=== PATIENT | female | born 1950 | race Caucasian/White ===

== ENCOUNTER → 2020-05-03 | Outpatient (CLI) | payer MEDICARE, OTHER ==
[~2020-05-03] MED LIST: ASPIRIN EC81 MG PO; LIPITOR TAB 2020 MG PO; SYNTHROID100 MCG PO; TOPROL XL25 MG PO; VITAMIN E400 UNI2 PO; ZANTAC150 MG PO
== END ==
LOC: HEART 5 14:04
DX: I08.0 Rheumatic disorders of both mitral and aortic valves (principal)
CPT/HCPCS: 93306

== ENCOUNTER → 2021-03-25 | Outpatient (CLI) | payer MEDICARE ==
[~2021-03-25] VITALS: Ht 157.5 cm; Wt 73.5 kg
== END ==
LOC: OPSV 09:46
DX: M81.0 Age-related osteoporosis without current pathological fracture (principal)
CPT/HCPCS: 96365; J3489

== ENCOUNTER → 2021-05-18 | Outpatient (CLI) | payer MEDICARE, OTHER | LOC: HEART 5 14:30 | DX: I08.1 Rheumatic disorders of both mitral and tricuspid valves (principal); I10 Essential (primary) hypertension; R06.02 Shortness of breath | CPT/HCPCS: 93306 ==

== ENCOUNTER 2021-08-10 10:38 | Emergency (ER) | payer MEDICARE ==
[2021-08-10 11:44] LABS: HEMOGLOBIN 14.2 gm/dl (12.3-15.3); RED BLOOD COUNT 4.32 M/UL (4.00-5.10); WHITE BLOOD COUNT 11.3 K/UL (4.5-11.0)
[2021-08-10 11:59] LABS: BUN/CREATININE RATIO 14 (0-10)
== END 2021-08-10 16:10 | disposition home or self-care (01) ==
LOC: ER1 10:38
PROVIDERS: Physician Assistant Medical
DX: R07.89 Other chest pain (principal); E78.5 Hyperlipidemia, unspecified; I10 Essential (primary) hypertension; Z79.82 Long term (current) use of aspirin
CPT/HCPCS: 71045; 80053; 81001; 82550; 82553; 83880; 84484; 85025; 93005; 99285

== ENCOUNTER → 2021-11-09 | Outpatient (CLI) | payer MEDICARE | LOC: CT 09:16 | DX: R42 Dizziness and giddiness (principal) | CPT/HCPCS: 36415; 70470; 82565; 84520; Q9967 ==

== ENCOUNTER → 2021-12-02 | Outpatient (CLI) | payer MEDICARE | LOC: KOH-I 08:33 | DX: R06.02 Shortness of breath (principal) | CPT/HCPCS: 71046 ==